=== PATIENT | female | born 1965 | race American Indian/Alaskan Native ===

== ENCOUNTER 2017-12-31 14:22 | Outpatient (CLI) | payer MEDICARE ==
--- NOTE | 2018-01-01 13:32 | Mammography Report ---
BILATERAL DIGITAL SCREENING MAMMOGRAM WITH CAD: 12/31/17 14:22:00 CLINICAL: Routine screening. COMPARISON:09/26/16 FINDINGS: The breasts are heterogeneously dense, which may obscure small masses. A new left outer asymmetry on the CC view requires additional imaging. The asymmetry is in the area of a large group of calcifications with benign morphology. Layering with tea cups is identified on the MLO view. The right breast is negative. IMPRESSION: Left asymmetry requiring further workup. BI-RADS CATEGORY: 0 -- Additional Imaging Evaluation Required RECOMMENDATION: Recalled for left ML and spot magnification CC and ML views and left breast ultrasound if needed. ACR BI-RADS MAMMOGRAPHIC CODES: 0 = Needs additional imaging evaluation; 1 = Negative; 2 = Benign; 3 = Probably benign; 4 = Suspicious; 5 = Malignant; 6 = Known biopsy-proven malignancy COMMENT: 1. Dense breast tissue, i.e., adenosis, fibrocystic changes, etc., may obscure an underlying neoplasm. 2. Approximately 10% of cancers are not detected with mammography. 3. A negative mammography report should not delay biopsy if a clinically suspicious mass is present. COMMENT: Patient follow-up letters are generated via our [employer] application.
== END 2017-12-31 14:23 | disposition home or self-care (01) ==
LOC: SPVWC 14:22
PROVIDERS: ATTEND Internal Medicine
DX: Z12.31 Encounter for screening mammogram for malignant neoplasm of breast (principal)
CPT/HCPCS: 77067

== ENCOUNTER 2018-05-06 14:20 | Outpatient (CLI) | payer OTHER, MEDICARE ==
--- NOTE | 2018-05-06 14:50 | Mammography Report ---
LEFT DIGITAL DIAGNOSTIC MAMMOGRAM : 05/06/18 14:20:00 CLINICAL: Recalled for asymmetry. COMPARISON:12/31/17 screening FINDINGS: Additional mammographic views were performed and are negative.The images include a group of calcifications which have benign morphology. IMPRESSION: No mammographic evidence of malignancy. BI-RADS CATEGORY: 2 - - Benign RECOMMENDATION: Routine mammographic screening in one year. ACR BI-RADS MAMMOGRAPHIC CODES: 0 = Needs additional imaging evaluation; 1 = Negative; 2 = Benign; 3 = Probably benign; 4 = Suspicious; 5 = Malignant; 6 = Known biopsy-proven malignancy COMMENT: 1. Dense breast tissue, i.e., adenosis, fibrocystic changes, etc., may obscure an underlying neoplasm. 2. Approximately 10% of cancers are not detected with mammography. 3. A negative mammography report should not delay biopsy if a clinically suspicious mass is present. COMMENT: Patient follow-up letters are generated via our [employer] application.
== END 2018-05-06 14:21 | disposition home or self-care (01) ==
LOC: SPVWC 14:20
PROVIDERS: ATTEND Internal Medicine
DX: N64.89 Other specified disorders of breast (principal)

== ENCOUNTER 2019-05-28 05:40 | Emergency (ER) | payer OTHER, MEDICARE ==
[2019-05-28] MEDS ORDERED: TYLENOL PO ONE (06:25)
[2019-05-28] MEDS ORDERED: IBUPROFEN PO ONE (06:25)
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
[2019-05-28] MEDS ORDERED: TORADOL IM ONE (07:47)
[2019-05-28] MEDS ORDERED: DELTASONE PO ONE (07:47)
[2019-05-28 08:35] VITALS: BP 116/54
== END 2019-05-28 08:17 | disposition home or self-care (01) ==
LOC: ED 05:40
DX: M79.604 Pain in right leg (principal); M79.605 Pain in left leg; I10 Essential (primary) hypertension; Z79.899 Other long term (current) drug therapy; V89.2XXA Person injured in unspecified motor-vehicle accident, traffic, initial encounter; Y93.89 Activity, other specified; Y92.410 Unspecified street and highway as the place of occurrence of the external cause; Y99.8 Other external cause status
CPT/HCPCS: 96372; 99282; J1885; J7512

== ENCOUNTER 2021-01-25 14:01 | Outpatient (CLI) | payer MEDICARE, OTHER ==
--- NOTE | 2021-01-26 08:58 | Mammography Report ---
DIGITAL SCREENING MAMMOGRAM WITH CAD, 01/25/2021 INDICATION: Routine screening mammography. TECHNIQUE: Digital bilateral 2D mammography was obtained in the craniocaudal and mediolateral obliq ue projections. This examination was interpreted with the benefit of Computer-Aided Detection analysi s. COMPARISON: 12/31/2017. FINDINGS: Breast Density: There are scattered areas of fibroglandular density. There is no evidence of dominant mass, suspicious calcifications or architectural distortion in eithe r breast. Calcifications left breast are less prominent. IMPRESSION: Follow up recommendation: Routine yearly BI-RADS Category 2: Benign. A "normal" or negative report should not discourage follow up or biopsy of a clinically significant f inding. A written summary of these findings will be mailed to the patient. The patient will be entered into a mammography reporting system which will generate a reminder letter for the patient's next appointmen t at the appropriate interval. The [employer] recommends yearly mammograms starting at age 40 and continuing as l hailey as a woman is in good health. Breast MRI is recommended for women with an approximate 20-25% or greater lifetime risk of breast cancer, including women with a strong family history of breast or ova rohit cancer or who have been treated for Hodgkin's disease. Signer Name: Maxx Still MD Signed: 01/26/2021 8:53 AM Workstation Name: [employer]
== END 2021-01-25 14:02 | disposition home or self-care (01) ==
LOC: SPVWC 14:01
PROVIDERS: ATTEND Internal Medicine
DX: Z12.31 Encounter for screening mammogram for malignant neoplasm of breast (principal); N64.89 Other specified disorders of breast
CPT/HCPCS: 77067